=== PATIENT | male | born 1955 | race Caucasian/White ===

== ENCOUNTER 2017-12-06 10:06 | Day surgery (SDC) | payer OTHER, MEDICAID ==
[2017-12-06] MEDS ORDERED: NS 500 ML IV 500 ML IV ONE (10:15)
[2017-12-06] MEDS ORDERED: TETRACAINE 0.5% OPHTH 1 DOSE AFFEYE ONE ×3 (11:00→13:26)
[2017-12-06] MEDS ORDERED: VIGAMOX 0.5% OPHTH 1 DOSE AFFEYE ONE ×5 (11:05→13:37)
[2017-12-06] MEDS ORDERED: PROLENSA OPHTH 1 DOSE AFFEYE ONE (11:16)
[2017-12-06] MEDS ORDERED: ALPHAGAN-P OPHTH 1 DOSE AFFEYE ONE (11:17)
[2017-12-06] MEDS ORDERED: AK-DILATE 2.5% OPHTH 1 DOSE OP ONE ×3 (11:18→11:20)
[2017-12-06] MEDS ORDERED: MYDRIACIL OPHTH 1 DOSE AFFEYE ONE ×3 (11:18→11:20)
[2017-12-06] MEDS ORDERED: CYCLOGYL 1% OPHTH 1 DOSE OP ONE ×3 (11:18→11:20)
[2017-12-06] MEDS ORDERED: BETADINE OPHTH SOLN 5% EACHEYE ONE (13:20)
[2017-12-06] MEDS ORDERED: ADRENALINE CHL INJ IJ ONE (13:26)
[2017-12-06] MEDS ORDERED: XYLOCAINE-MPF 1% IJ ONE (13:26)
[2017-12-06] MEDS ORDERED: DUOVISC IO ONE (13:26)
[2017-12-06] MEDS ORDERED: BSS OPHTH (PLAIN) 500 ML with VANCOMYCIN HCL 500 MG VIAL 25 MG, ADRENALINE CHL INJ 1 MG IR ONE ×3 (13:26)
[2017-12-06] MEDS ORDERED: DIPRIVAN VIAL ONE (15:40)
[2017-12-06] MEDS ORDERED: VERSED ONE (15:40)
[2017-12-06 15:48] VITALS: BP 148/77
== END 2017-12-06 13:57 | disposition home or self-care (01) ==
LOC: SURG1 10:06
PROVIDERS: ATTEND Ophthalmology
PROC: 08RK3JZ Replacement of Left Lens with Synthetic Substitute, Percutaneous Approach (ICD-10-PCS; principal; 2017-12-06 18:45)
PROC: 08DK3ZZ Extraction of Left Lens, Percutaneous Approach (ICD-10-PCS; principal; 2017-12-06 18:45)
DX: H25.12 Age-related nuclear cataract, left eye (principal)
CPT/HCPCS: A4217; J0170; J2250; J3370; J3490

== ENCOUNTER 2017-12-20 07:06 | Day surgery (SDC) | payer OTHER, MEDICAID ==
[2017-12-20] MEDS ORDERED: TETRACAINE 0.5% OPHTH 1 DOSE AFFEYE ONE ×4 (07:35→10:12)
[2017-12-20] MEDS ORDERED: VIGAMOX 0.5% OPHTH 1 DOSE AFFEYE ONE ×5 (07:36→10:29)
[2017-12-20] MEDS ORDERED: PROLENSA OPHTH 1 DOSE AFFEYE ONE (07:47)
[2017-12-20] MEDS ORDERED: ALPHAGAN-P OPHTH 1 DOSE AFFEYE ONE (07:48)
[2017-12-20] MEDS ORDERED: CYCLOGYL 1% OPHTH 1 DOSE OP ONE ×3 (07:49→07:55)
[2017-12-20] MEDS ORDERED: AK-DILATE 2.5% OPHTH 1 DOSE OP ONE ×3 (07:50→07:56)
[2017-12-20] MEDS ORDERED: MYDRIACIL OPHTH 1 DOSE AFFEYE ONE ×3 (07:51→07:57)
[2017-12-20] MEDS: NS 1000 ML 1,000 ML ONE ×2 (08:30→09:20)
[2017-12-20] MEDS ORDERED: VERSED IVP ONE (08:33)
[2017-12-20] MEDS ORDERED: BETADINE OPHTH SOLN 5% EACHEYE ONE (10:02)
[2017-12-20] MEDS ORDERED: ADRENALINE CHL INJ IJ ONE ×2 (10:03→10:12)
[2017-12-20] MEDS ORDERED: XYLOCAINE-MPF 1% IJ ONE ×2 (10:03→10:12)
[2017-12-20] MEDS ORDERED: DUOVISC IO ONE ×2 (10:04→10:12)
[2017-12-20] MEDS ORDERED: BSS OPHTH (PLAIN) 500 ML with VANCOMYCIN HCL 500 MG VIAL 25 MG, ADRENALINE CHL INJ 1 MG IR ONE ×6 (10:05)
[2017-12-20] MEDS ORDERED: VERSED ONE (13:50)
[2017-12-20] MEDS ORDERED: DIPRIVAN VIAL ONE (13:50)
[2017-12-20 14:04] VITALS: BP 126/63
== END 2017-12-20 10:55 | disposition home or self-care (01) ==
LOC: SURG1 07:06
PROVIDERS: ATTEND Ophthalmology
PROC: 08DJ3ZZ Extraction of Right Lens, Percutaneous Approach (ICD-10-PCS; principal; 2017-12-20 09:00)
PROC: 08RJ3JZ Replacement of Right Lens with Synthetic Substitute, Percutaneous Approach (ICD-10-PCS; principal; 2017-12-20 09:00)
DX: H25.11 Age-related nuclear cataract, right eye (principal)
CPT/HCPCS: A4217; J0170; J2250; J3370; J3490